=== PATIENT | male | born 2000 | race Two or more races ===

== ENCOUNTER 2020-05-28 20:39 | Emergency (ER) | payer BC ==
[2020-05-28] MEDS ORDERED: Sodium Chloride 0.9% 10 ML Syringe FLUSH PRN (20:55)
[2020-05-28] MEDS ORDERED: LORazepam 1 MG Tab PO ONE (20:55)
[2020-05-28] MEDS ORDERED: Sodium Chloride 0.9% 2.5 ML Syringe FLUSH PRN (20:55)
[2020-05-28] MEDS ORDERED: Aspirin 81 MG Tab.Chew PO ONE (20:55)
[2020-05-28] MEDS ORDERED: Sodium Chloride 0.9% 1,000 ML IV ONE (20:57)
--- NOTE | 2020-05-28 21:00 | EDM.PDOC ---
ED HPI GENERAL MEDICAL PROBLEM - General Chief Complaint: General Stated Complaint: ANXIETY Time Seen by Provider: 05/28/20 20:48 Source of Information: Reports: Patient History Limitations: Reports: No Limitations - History of Present Illness INITIAL COMMENTS - FREE TEXT/NARRATIVE: History of present illness: [Patient is 19-year-old male who presents with a 2-week history of occasional palpitations, intermittent shortness of breath, and anxiety. He states that prior to these last couple weeks he did not deal with chronic anxiety issues, has not been diagnosed with generalized anxiety disorder, denies depression, denies suicidal ideation or homicidal ideation. He has not tried any medications [id number] to treat his symptoms. Currently denies shortness of breath, was experiencing it earlier this evening however. Complains of palpitations currently along with anxiety. He smokes cigarettes. Denies history of COPD or asthma. Denies any history of DVT or PE. Denies any known cardiac history. Denies any other chronic medical problems.] Review of systems: As per history of present illness and below otherwise all systems reviewed and negative. Past medical history: As per history of present illness and as reviewed below otherwise noncontributory. Surgical history: As per history of present illness and as reviewed below otherwise noncontributory. Social history: No reported history of drug or alcohol abuse. Family history: As per history of present illness and as reviewed below otherwise noncontributory. Physical exam: General: Awake, alert, no acute distress, A&O X3. HEENT: Atraumatic, normocephalic, pupils reactive, negative for conjunctival pallor or scleral icterus, mucous membranes moist, throat clear, neck supple, nontender, trachea midline. Lungs: Clear to auscultation, breath sounds equal bilaterally, chest nontender. Heart: tachycardic, normal S1S2, no JVD. Abdomen: Soft, nondistended, nontender. Negative for masses or hepatosplenomegaly. Negative for costovertebral tenderness. Pelvis: Stable nontender. Genitourinary: Deferred. Rectal: Deferred. Extremities: Atraumatic, no edema, Neurovascular unremarkable. Neuro: Motor and sensory grossly intact throughout. Exam nonfocal. Diagnostics: [] Therapeutics: [] Impression: [] Plan: [] Definitive disposition and diagnosis as appropriate pending reevaluation and review of above. - Related Data Allergies Allergy/AdvReac Type Severity Reaction Status Date / Time No Known Allergies Allergy Verified 05/28/20 20:52 Home Meds: Home Meds hydrOXYzine HCL [Atarax] 25 mg PO Q8H PRN #30 tab 05/28/20 [Rx] ED ROS GENERAL - Review of Systems Review Of Systems: Comprehensive ROS is negative, except as noted in HPI. ED EXAM, GENERAL - Physical Exam Exam: See Below (see h and p) EKG INTERPRETATION EKG Date: 05/28/20 Time: 21:02 Rhythm: NSR Rate (Beats/Min): 96 [place]: Normal P-Wave: Present QRS: Normal ST-T: Normal QT: Normal Course - Vital Signs Text/Narrative:: Reassuring work-up including negative d-dimer, clear chest x-ray, nonischemic EKG, no evidence for A. fib or other rhythm issue. Patient does feel some improvement after getting oral Ativan here in the ED. I told him I would be willing to prescribe him some hydroxyzine, because it has less addictive potential and that he should start with something like this first to see if it is effective and he can escalate from there if needed to help with anxiety. I encouraged him to follow-up with his PCP as well. He is not having any active chest pain, is not short of breath, showed clinical improvement throughout his emergency department stay. Return precautions provided otherwise stable and well-appearing at discharge. Last Recorded V/S: Last Vital Signs Temp 36.8 C 05/28/20 20:52 Pulse 96 05/28/20 20:52 Resp 18 05/28/20 20:52 BP 135/72 05/28/20 20:52 Pulse Ox 98 05/28/20 20:52 - Orders/Labs/Meds Orders: Active Orders 24 hr Category Date Time Status EKG Documentation Completion [RC] STAT Care 05/28/20 20:56 Active Sodium Chloride 0.9% [Saline Flush] Med 05/28/20 20:55 Active 10 ml FLUSH ASDIRECTED PRN Sodium Chloride 0.9% [Saline Flush] Med 05/28/20 20:55 Active 2.5 ml FLUSH ASDIRECTED PRN Saline Lock Insert [OM.PC] Stat Oth 05/28/20 20:55 Ordered Medication Orders Sodium Chloride (Saline Flush) 10 ml FLUSH ASDIRECTED PRN PRN Reason: Keep Vein Open Sodium Chloride (Saline Flush) 2.5 ml FLUSH ASDIRECTED PRN PRN Reason: Keep Vein Open Labs: Laboratory Tests 05/28/20 05/28/20 05/28/20 Range/Units 21:25 21:25 21:45 WBC 9.81 (4.0-11.0) K/uL RBC 5.32 (4.50-5.90) M/uL Hgb 14.9 (13.0-17.0) g/dL Hct 44.7 (38.0-50.0) % MCV 84.0 (80.0-98.0) fL MCH 28.0 (27.0-32.0) pg MCHC 33.3 (31.0-37.0) g/dL RDW Std Deviation 38.9 (28.0-62.0) fl RDW Coeff of Ruth 13 (11.0-15.0) % Plt Count 224 (150-400) K/uL MPV 10.70 (7.40-12.00) fL Neut % (Auto) 56.0 (48.0-80.0) % Lymph % (Auto) 33.2 (16.0-40.0) % [place] % (Auto) 8.4 (0.0-15.0) % Eos % (Auto) 1.8 (0.0-7.0) % Baso % (Auto) 0.6 (0.0-1.5) % Neut # (Auto) 5.5 (1.4-5.7) K/uL Lymph # (Auto) 3.3 H (0.6-2.4) K/uL [place] # (Auto) 0.8 (0.0-0.8) K/uL Eos # (Auto) 0.2 (0.0-0.7) K/uL Baso # (Auto) 0.1 (0.0-0.1) K/uL Nucleated RBC % 0.0 /100WBC Nucleated RBCs # 0 K/uL D-Dimer, Quantitative < 0.19 (0.0-0.50) mg/L FEU Sodium 141 (136-148) mmol/L Potassium 3.4 L (3.5-5.1) mmol/L Chloride 103 (98-107) mmol/L Carbon Dioxide 25.1 (21.0-32.0) mmol/L BUN 15 (7.0-18.0) mg/dL Creatinine 1.1 (0.8-1.3) mg/dL Est Cr Clr Drug Dosing 116.60 mL/min Estimated GFR (MDRD) > 60.0 ml/min Glucose 104 (74-106) mg/dL Calcium 9.7 (8.5-10.1) mg/dL Total Bilirubin 0.7 (0.2-1.0) mg/dL AST 20 (15-37) IU/L ALT 31 (14-63) IU/L Alkaline Phosphatase 136 H (46-116) U/L Total Protein 8.3 H (6.4-8.2) g/dL Albumin 5.0 (3.4-5.0) g/dL Globulin 3.3 (2.6-4.0) g/dL Albumin/Globulin Ratio 1.5 (0.9-1.6) Meds: Medications Generic Name Dose Route Start Last Admin Trade Name Freq PRN Reason Stop Dose Admin Sodium Chloride 10 ml 05/28/20 20:55 Saline Flush FLUSH ASDIRECTED PRN Keep Vein Open Sodium Chloride 2.5 ml 05/28/20 20:55 Saline Flush FLUSH ASDIRECTED PRN Keep Vein Open Discontinued Medications Generic Name Dose Route Start Last Admin Trade Name Freq PRN Reason Stop Dose Admin Aspirin 324 mg 05/28/20 20:55 05/28/20 21:23 Aspirin PO 05/28/20 20:56 324 mg ONETIME ONE Administration Sodium Chloride 1,000 mls @ 1,000 mls/hr 05/28/20 20:57 05/28/20 21:25 Normal Saline IV 05/28/20 21:56 1,000 mls/hr .Bolus ONE Administration Lorazepam 1 mg 05/28/20 20:55 05/28/20 21:25 Ativan PO 05/28/20 20:56 1 mg ONETIME ONE Administration Departure - Departure Time of Disposition: 22:10 Disposition: Home, Self-Care 01 Condition: Good Clinical Impression: Palpitations - Discharge Information Prescriptions: hydrOXYzine HCL [Atarax] 25 mg PO Q8H PRN #30 tab PRN Reason: Anxiety Instructions: Palpitations Referrals: PCP,None [Primary Care Provider] - Forms: ED Department Discharge Additional Instructions: Follow-up with primary care doctor. Take all medications as prescribed. Return to the ER with any new or worsening symptoms. The following information is given to patients seen in the emergency department who are being discharged to home. This information is to outline your options for follow-up care. We provide all patients seen in our emergency department with a follow-up referral. The need for follow-up, as well as the timing and circumstances, are variable depending upon the specifics of your emergency department visit. If you don't have a primary care physician on staff, we will provide you with a referral. We always advise you to contact your personal physician following an emergency department visit to inform them of the circumstance of the visit and for follow-up with them and/or the need for any referrals to a consulting specialist. The emergency department will also refer you to a specialist when appropriate. This referral assures that you have the opportunity for follow-up care with a specialist. All of these measure are taken in an effort to provide you with optimal care, which includes your follow-up. Under all circumstances we always encourage you to contact your private physician who remains a resource for coordinating your care. When calling for follow-up care, please make the office aware that this follow-up is from your recent emergency room visit. If for any reason you are refused follow-up, please contact the [facility] Emergency Department at and asked to speak to the emergency department charge nurse. Sepsis Event Note (ED) - Evaluation Sepsis Screening Result: No Definite Risk - Focused Exam Vital Signs: Vital Signs Temp Pulse Resp BP Pulse Ox 05/28/20 20:52 36.8 C 96 18 135/72 98 - My Orders Last 24 Hours: My Active Orders 05/28/20 20:55 Sodium Chloride 0.9% [Saline Flush] 10 ml FLUSH ASDIRECTED PRN Sodium Chloride 0.9% [Saline Flush] 2.5 ml FLUSH ASDIRECTED PRN Saline Lock Insert [OM.PC] Stat 05/28/20 20:56 EKG Documentation Completion [RC] STAT - Assessment/Plan Last 24 Hours: My Active Orders 05/28/20 20:55 Sodium Chloride 0.9% [Saline Flush] 10 ml FLUSH ASDIRECTED PRN Sodium Chloride 0.9% [Saline Flush] 2.5 ml FLUSH ASDIRECTED PRN Saline Lock Insert [OM.PC] Stat 05/28/20 20:56 EKG Documentation Completion [RC] STAT
--- NOTE | 2020-05-28 21:26 | CR ---
Chest: Frontal view of the chest was obtained. Comparison: No prior chest imaging. Heart size and mediastinum are normal. Lungs are clear with no acute parenchymal change. Bony structures are grossly intact. Impression: 1. Nothing acute is seen in frontal chest x-ray. Diagnostic code #1 This report was dictated in MDT
[2020-05-28 21:53] LABS: BLOOD UREA NITROGEN,BUN 15 mg/dL (7.0-18.0); CARBON DIOXIDE,CO2 25.1 mmol/L (21.0-32.0); CHLORIDE,CL 103 mmol/L (98-107); GLUCOSE RANDOM 104 mg/dL (74-106); POTASSIUM,K 3.4 mmol/L (3.5-5.1); SODIUM,NA 141 mmol/L (136-148)
== END 2020-05-28 22:25 | disposition home or self-care (01) ==
LOC: MW.ED 20:39
DX: R00.2 Palpitations (principal); R00.0 Tachycardia, unspecified
CPT/HCPCS: 36415; 71045; 80053; 85025; 85379; 93005; 99285; A9270; J7030